=== PATIENT | male | born 1960 | race Hispanic/Latino ===

== ENCOUNTER 2017-04-01 15:11 | Observation (INO) | payer MEDICARE, OTHER ==
[2017-04-01 15:13] VITALS: BMI 24.3
[2017-04-01] MEDS ORDERED: Sodium Chloride 0.9% 1,000 ML IV STA (15:43)
--- NOTE | 2017-04-01 16:14 | ED PDOC ---
Arrival/HPI - General Chief Complaint: Abdominal Pain Time Seen by Provider: 04/01/17 15:26 Historian: Patient - History of Present Illness Narrative History of Present Illness (Text): 04/01/17 16:09 A 57 year old male, whose past medical history includes smoking, colon resection in 2010 and chronic constipation, presents to the emergency department complaining of generalized weakness and black stool for 1 week. Patient reports he has a bowel movement every 4 days after taking dulcolax. He states his last bowel movement was today prior to coming to the emergency room. Patient notes diffuse abdominal discomfort, and denies any relieving or exacerbating factors. Patient denies any fever, chills, nausea, vomiting, urinary symptoms, chest pain, shortness of breath or any other complaints. PMD: Dr. Mckinney Time/Duration: 1 week Symptom Course: Unchanged Quality: Other Context: Home Past Medical History - Provider Review Nursing Documentation Reviewed: Yes - Cardiac Hx Cardiac Disorders: Yes Hx Hypertension: Yes - Pulmonary Hx Respiratory Disorders: Yes Hx Chronic Obstructive Pulmonary Disease (COPD): Yes - Neurological Hx Neurological Disorder: No - HEENT Hx HEENT Disorder: No - Renal Hx Renal Disorder: No - Endocrine/Metabolic Hx Endocrine Disorders: No - Hematological/Oncological Hx Blood Disorders: No - Integumentary Hx Dermatological Disorder: No - Musculoskeletal/Rheumatological Hx Musculoskeletal Disorders: No - Gastrointestinal Hx Gastrointestinal Disorders: No - Genitourinary/Gynecological Hx Genitourinary Disorders: No - Psychiatric Hx Psychophysiologic Disorder: Yes Hx Anxiety: Yes Hx Depression: Yes Hx Substance Use: No - Surgical History Hx Appendectomy: Yes Other/Comment: colon resection - Suicidal Assessment Feels Threatened In Home Enviroment: No Family/Social History - Physician Review Nursing Documentation Reviewed: Yes Family/Social History: No Known Family HX Smoking Status: Heavy Smoker > 10 Cigarettes Daily Hx Alcohol Use: No Hx Substance Use: No Allergies/Home Meds Allergies/Adverse Reactions: Allergies No Known Allergies Allergy (Verified 04/01/17 15:16) Home Medications: Home Meds Medication Instructions Recorded Confirmed Alprazolam [Xanax] 0.5 mg PO QID PRN 04/01/17 04/01/17 Escitalopram Oxalate [Escitalopram 20 mg PO DAILY 04/01/17 04/01/17 Oxalate] Irbesartan [Irbesartan] 150 mg PO DAILY 04/01/17 04/01/17 Mometasone/Formoterol [Dulera 200 2 inh INH BID 04/01/17 04/01/17 Mcg/5 Mcg Inhaler] Physical Exam - Physical Exam Narrative Physical Exam (Text): - Review of Systems Constitutional: (+) Generalized weakness absent: Fatigue, Weight Change, Fevers Eyes: Normal ENT: Normal Respiratory: Normal absent: SOB, Cough, Sputum Cardiovascular: Normal absent: Chest pain, Palpitations, Syncope Gastrointestinal: (+) Black stool, Abdominal pain absent: Nausea, Vomiting Genitourinary: Normal. absent: Dysuria, Frequency, Hematuria Musculoskeletal: Normal. absent: Arthralgias, Back Pain, Neck Pain Skin: Normal Neurological: Normal absent: Focal Weakness Endocrine: Normal Hemo/Lymphatic: Normal Psychiatric: Normal - Physical exam Patient appears age appropriate, speaking full sentences without difficulty - Systems Exam Head: Present: Atraumatic, Normocephalic Pupils: Present: PERRL Extraocular Muscles: Present: EOMI Conjunctiva: Present: Normal Mouth: Present: Moist Mucous Membranes Neck: Present: Normal Range of Motion. No: MIDLINE TENDERNESS, Paraspinal Tenderness Respiratory/Chest: Present: Clear to Auscultation, Good Air Exchange. No: Respiratory Distress, Accessory Muscle Use, Tachypneic Cardiovascular: Present: Regular Rate and Rhythm, Normal S1, S2, Peripheral Pulses Present. No: Murmurs Abdomen: Present: Normal Bowel Sounds, No: Tenderness, Peritoneal Signs, Rebound, Guarding, Distention Rectal: Rectal exam performed by me and chaperoned by nurse Ruby, results showed guaiac negative. Back: Present: Normal Inspection. No: Midline Tenderness, Paraspinal Tenderness Upper Extremity: Present: Normal Inspection. No: Cyanosis, Edema Lower Extremity: Present: Normal Inspection. No: Edema Neurological: Present: GCS=15, Speech Normal, cranial nerves II through XII fully intact with no cerebellar abnormality, neuro-sensory fully intact. No focal neurological deficits. Skin: Present: Warm, Dry, Normal Color. No: Rashes Lymphatic: Present: OX3, NI, NC Psychiatric: Present: Alert, Oriented x 3, Normal Insight, Normal Concentration Vital Signs Reviewed: Yes Vital Signs Temp Pulse Resp BP Pulse Ox 04/01/17 16:50 76 18 148/86 99 04/01/17 15:17 98.4 F 81 18 151/94 H 99 Temperature: Afebrile Blood Pressure: Hypertensive Pulse: Regular Respiratory Rate: Normal Appearance: Positive for: Well-Appearing, Non-Toxic, Comfortable Pain Distress: None Mental Status: Positive for: Alert and Oriented X 3 Medical Decision Making ED Course and Treatment: 04/01/17 16:09 Impression: A 57 year old male with generalized weakness and black stool. Patient notes diffuse abdominal discomfort. Physical exam unremarkable. Rectal exam guaiac negative. Differential Diagnosis included but are not limited to: Constipation vs. Dehydration vs. cancer Plan: -- Abdomen and pelvis CT -- Chest xray -- EKG -- Labs -- Toradol and IV fluids -- Reassess and disposition Progress Notes: EKG shows NSR at [address]-segment elevations, normal intervals. Interpreted by me. 04/01/17 17:29 On reevaluation, patient states that his pain is still present, asking for Dilaudid for his symptoms. 04/01/17 19:[address] Olmos, agrees with med/obs for GI evaluation pt states his pain is better, aware of and agrees with plan 04/01/17 19:[address] Chaudhari, aware of admission - Lab Interpretations Lab Results: 04/01/17 16:16 04/01/17 16:16 Lab Results 04/01/17 16:16: Sodium 140, Chloride 105, Potassium 4.5, Carbon Dioxide 29, Anion Gap 11, BUN 14, Creatinine 0.8, Est GFR ( Amer) > 60, Est GFR (Non- Af Amer) > 60, Random Glucose 81, Calcium 8.9, Total Bilirubin 0.7, AST 26, ALT 39, Alkaline Phosphatase 65, Total Protein 6.9, Albumin 3.8, Globulin 3.1, Albumin/Globulin Ratio 1.2, Lipase 47 04/01/17 16:16: pO2 39, VBG pH 7.31 L, VBG pCO2 63.0 H, VBG HCO3 31.7 H, VBG Total CO2 33.6 H, VBG O2 Sat (Calc) 78.4 H, VBG Base Excess 3.6 H, VBG Potassium 4.6, Sodium 139.0, Chloride 110.0 H, Glucose 79, Lactate 0.7, FiO2 21.0, Venous Blood Potassium 4.6 04/01/17 16:16: PT 10.9, INR 1.01, APTT 31.4 H 04/01/17 16:16: WBC 5.9, RBC 3.85, Hgb 12.0 L, Hct 34.8 L, MCV 90.4, MCH 31.2, MCHC 34.5, RDW 13.2, Plt Count 256, MPV 9.2, Gran % 54.2, Lymph % (Auto) 32.5, [place] % (Auto) 9.1 H, Eos % (Auto) 3.2, Baso % (Auto) 1.0, Gran # 3.17, Lymph # 1.9, [place] # 0.5, Eos # 0.2, Baso # 0.06 I have reviewed the lab results: Yes - RAD Interpretation Radiology Orders: 04/01/17 15:44 ABD & PELVIS IV CONTRAST ONLY [CT] Stat CHEST PORTABLE [RAD] Stat - Medication Orders Current Medication Orders: Discontinued Medications Hydromorphone HCl (Dilaudid) 1 mg IVP STAT STA Stop: 04/01/17 17:33 Last Admin: 04/01/17 18:15 Dose: 1 mg Sodium Chloride (Sodium Chloride 0.9%) 1,000 mls @ 1,000 mls/hr IV .Q1H STA Stop: 04/01/17 16:42 Last Admin: 04/01/17 16:49 Dose: 1,000 mls/hr Iohexol (Omnipaque 300 100 Ml) Confirm Administered Dose 100 ml IJ .STK-MED ONE Stop: 04/01/17 17:12 Ketorolac Tromethamine (Toradol) 15 mg IVP STAT STA Stop: 04/01/17 15:44 Last Admin: 04/01/17 16:49 Dose: 15 mg Re-Assess: [facility] Pain Assessment Document 04/01/17 17:49 HI (Rec: 04/01/17 18:15 HI [id number]) Pain Reassessment Is this a pain reassessment? Yes Sleep Is patient sleeping during reassessment? No Presence of Pain Presence of Pain Yes Pain Scale Used Pain Scale Used Numeric Location Pain Location Body Site Abdomen Description Description Constant Intensity of Pain at present 8 - Scribe Statement The provider has reviewed the documentation as recorded by the Zenaida Carr Provider Scribe Attestation: All medical record entries made by the Scribe were at my direction and personally dictated by me. I have reviewed the chart and agree that the record accurately reflects my personal performance of the history, physical exam, medical decision making, and the department course for this patient. I have also personally directed, reviewed, and agree with the discharge instructions and disposition. Disposition/Present on Arrival - Present on Arrival Any Indicators Present on Arrival: No History of DVT/PE: No History of Uncontrolled Diabetes: No Urinary Catheter: No History of Decub. Ulcer: No History Surgical Site Infection Following: None - Disposition Have Diagnosis and Disposition been Completed?: Yes Diagnosis: Abdominal pain Disposition: HOSPITALIZED Disposition Time: 19:14 Patient Plan: Admission Condition: FAIR Referrals: Mike Mckinney MD [Primary Care Provider] - Follow up with primary
[2017-04-01 16:52] LABS: ADD MANUAL DIFF? NO
[2017-04-01 17:03] LABS: VENOUS BLOOD GAS BASE EXCESS 3.6 mmol/L (0.0-2.0); VENOUS BLOOD PH 7.31 (7.32-7.43)
[2017-04-01 17:04] LABS: ALB/GLOB RATIO 1.2 (1.1-1.8); ALKALINE PHOSPHATASE 65 U/L (38-133); ALT/SGPT 39 U/L (7-56); AST/SGOT 26 U/L (15-59); BILIRUBIN,TOTAL 0.7 mg/dL (0.2-1.3); BLOOD UREA NITROGEN 14 mg/dL (7-21); CALCIUM 8.9 mg/dL (8.4-10.5); CARBON DIOXIDE 29 mmol/L (21-33); CHLORIDE 105 mmol/L (98-107); GFR AFRICAN-AMERICAN > 60; GLUCOSE,RANDOM 81 mg/dL (70-110); LIPASE 47 U/L (23-300); POTASSIUM 4.5 mmol/L (3.6-5.0); SODIUM 140 mmol/L (132-148); TOTAL PROTEIN 6.9 g/dL (5.8-8.3)
[2017-04-01 17:11] LABS: BASO # 0.06 K/mm3 (0.0-2.0); EOS # 0.2 (0.0-0.7); EOS % 3.2 % (1.5-5.0); GRAN # 3.17 (1.4-6.5); GRAN % 54.2 % (50.0-68.0); HEMATOCRIT 34.8 % (42.0-52.0); LYMPH # 1.9 (1.2-3.4); LYMPH % 32.5 % (22.0-35.0); MEAN CELL VOLUME 90.4 fL (80.0-105.0); MEAN CORPUSCULAR HEMOGLOBIN 31.2 pg (25.0-35.0); MEAN CORPUSCULAR HGB CONC 34.5 g/dl (31.0-37.0); MEAN PLATELET VOLUME 9.2 fl (7.0-11.0); MONO # 0.5 (0.1-0.6); MONO % 9.1 % (1.0-6.0); PLATELET COUNT 256 10^3/uL (120.0-450.0); RED CELL DISTRIBUTION WIDTH 13.2 % (11.5-14.5); WHITE BLOOD COUNT 5.9 10^3/ul (4.5-11.0)
[2017-04-01] MEDS ORDERED: Iohexol 300 100 ML IJ ONE (17:11)
[2017-04-01 17:18] LABS: INR 1.01 (0.93-1.08); PARTIAL THROMBOPLASTIN TIME 31.4 Seconds (23.7-30.8)
[2017-04-01] MEDS ORDERED: HYDROmorphone 2 mg/ml ISec IVP STA (17:30)
[2017-04-01] MEDS ORDERED: HYDROmorphone 1 mg/ml ISec IVP STA (17:32)
--- NOTE | 2017-04-01 17:50 | CT ---
PROCEDURE: CT Abdomen and Pelvis with contrast HISTORY: abd pain COMPARISON: None available. TECHNIQUE: Contrast dose: 100 mL Omnipaque 350 Radiation dose: Total exam DLP = 605.22 mGy-cm. This CT exam was performed using one or more of the following dose reduction techniques: Automated exposure control, adjustment of the mA and/or kV according to patient size, and/or use of iterative reconstruction technique. FINDINGS: LOWER THORAX: No visible consolidation, pleural effusion, or pneumothorax. LIVER: Hypoattenuation of the liver compatible with hepatic steatosis. GALLBLADDER AND BILE DUCTS: Unremarkable. PANCREAS: Dilated ectatic pancreatic duct measuring up to 7 mm. 4 mm too small to characterize hypodense lesion within the uncinate process, possibly cyst. SPLEEN: Unremarkable. ADRENALS: Unremarkable. KIDNEYS AND URETERS: The kidneys enhance symmetrically. No hydronephrosis or obstructing calculus identified. VASCULATURE: Atherosclerotic calcifications. No aortic aneurysm. BOWEL: The stomach is nondistended. Lack of oral contrast limits evaluation for bowel pathology. No dilated loops of bowel to suggest obstruction. Markedly thick-walled loops of small bowel (jejunum) ; correlate for infectious or inflammatory etiologies. APPENDIX: The appendix is not identified. No secondary signs of acute appendicitis. PERITONEUM: No significant free fluid. No definite free air. LYMPH NODES: No bulky adenopathy. BLADDER: Thick-walled under distended urinary bladder. REPRODUCTIVE: Unremarkable. BONES: Osseous demineralization. Degenerative changes. Bilateral L5 spondylolysis. 2.2 cm of lytic lesion within the right femur with sclerotic borders. OTHER FINDINGS: Surgical clips within the right abdomen. IMPRESSION: Markedly thick-walled loops of small bowel; correlate for infectious or inflammatory etiologies. Dilated ectatic pancreatic duct measuring up to 7 mm. 4 mm too small to characterize hypodense lesion within the uncinate process, possibly cyst. Outpatient MRCP/MR pancreas may be considered for further evaluation if indicated. Additional findings as above.
[2017-04-01] MEDS ORDERED: Sodium Chloride 0.9% 1,000 ML IV SCH (19:30)
--- NOTE | 2017-04-01 20:32 | CP.PCM.HP ---
<Latricia Chaudhari - Last Filed: 04/02/17 07:26> History of Present Illness - History of Present Illness History of Present Illness: Internal medicine H & P for Dr. Tata Chaudhari, PGY-1 Pt S & E at bedside. 57M w/PMH sig for chronic constipation and diarrhea admitted for abdominal pain x 2 wks. Pt reports sudden onset of abdominal pain, no inciting factors. Pain is left sided w/radiation diffusely to abdomen, worsening over last 2 weeks from mild to severe, sharp. Pt states that he has chronic constipation, requiring 3 doses of Dulcolax to move bowels, moves bowels Q4D- BM is dark/ black and hard, not sticky, "like bricks", followed by dark liquid stools. Pt was seen on day of admission by PMD with instructions to present to ED for admission. Last BM on day of admission. pain alleviated by pain medications, aggravated by lack of BM. Pt took Tylenol at home without relief. Admits to weakness upon sitting/standing from a lying position, has fallen back on couch when attempting to get up numerous times, flatus, lethargy, fatigue, regurgitation, night sweats, palpitations, KHAN, wheezing, cough in AM (non productive), decreased appetite, panic attacks. Denies nausea, emesis, fevers, recent illness, sore throat, rhinorrhea, changes in hearing, neck pain, chest pain, SOB, melena. PMH: Chronic constipation & diarrhea since 2010, HTN, panic attacks PSH: appendectomy and colon resection (2010) All: NKA SH: Admits to tobacco use- 1 ppd x 35 yrs, occasional ETOH use (1 drink q 2 mos) , denies illicit drug use PMD: Hank Home meds: Xanax, Escitalopram, Irbesartan, Dulera Present on Admission - Present on Admission Any Indicators Present on Admission: No History of DVT/PE: No History of Uncontrolled Diabetes: No Urinary Catheter: No Decubitus Ulcer Present: No Review of Systems - Review of Systems All systems: reviewed and no additional remarkable complaints except - Constitutional Constitutional: Chills, Fatigue, Lethargy, Night Sweats, Weakness. absent: Fever, Headache, Increased Appetite - EENT Eyes: absent: Blurred Vision, Change in Vision, Diplopia, Spots in Vision Ears: absent: Dizziness Nose/Mouth/Throat: absent: Nasal Congestion, Dysphagia, Sore Throat - Cardiovascular Cardiovascular: Leg Edema (occasional). absent: Chest Pain, Chest Pain with Activity, Diaphoresis, Palpitations - Respiratory Respiratory: Cough, Dyspnea on Exertion, Wheezing - Gastrointestinal Gastrointestinal: Abdominal Pain, Constipation, Diarrhea. absent: Fecal Incontinence, Hematemesis, Hematochezia, Melena, Nausea, Vomiting - Genitourinary Genitourinary: absent: Difficulty Urinating, Dysuria, Hematuria - Musculoskeletal Musculoskeletal: absent: Neck Pain, Numbness, Tingling - Integumentary Integumentary: absent: Rash - Neurological Neurological: absent: Numbness, Tingling, Weakness - Psychiatric Psychiatric: Anxiety - Endocrine Endocrine: Fatigue. absent: Palpitations Past Patient History - Past Social History Smoking Status: Heavy Smoker > 10 Cigarettes Daily - CARDIAC Hx Cardiac Disorders: Yes Hx Hypertension: Yes - PULMONARY Hx Respiratory Disorders: Yes Hx Chronic Obstructive Pulmonary Disease (COPD): Yes - NEUROLOGICAL Hx Neurological Disorder: No - HEENT Hx HEENT Problems: No - RENAL Hx Chronic Kidney Disease: No - ENDOCRINE/METABOLIC Hx Endocrine Disorders: No - HEMATOLOGICAL/ONCOLOGICAL Hx Blood Disorders: No - INTEGUMENTARY Hx Dermatological Problems: No - MUSCULOSKELETAL/RHEUMATOLOGICAL Hx Musculoskeletal Disorders: No - GASTROINTESTINAL Hx Gastrointestinal Disorders: No - GENITOURINARY/GYNECOLOGICAL Hx Genitourinary Disorders: No - PSYCHIATRIC Hx Psychophysiologic Disorder: Yes Hx Anxiety: Yes Hx Depression: Yes Hx Substance Use: No - SURGICAL HISTORY Hx Appendectomy: Yes Other/Comment: colon resection Meds Home Medications: Home Medication List Medication Instructions Recorded Confirmed Type Mesalamine [Delzicol] 400 mg PO BID #30 cap.drtab. 04/04/17 Rx Pantoprazole [Protonix EC Tab] 40 mg PO DAILY #30 ect 04/04/17 Rx Allergies/Adverse Reactions: Allergies Allergy/AdvReac Type Severity Reaction Status Date / Time No Known Allergies Allergy Verified 04/01/17 15:16 Physical Exam - Constitutional Appears: Well, Non-toxic, No Acute Distress - Head Exam Head Exam: ATRAUMATIC, NORMAL INSPECTION, NORMOCEPHALIC - Eye Exam Eye Exam: EOMI, Normal appearance, PERRL Pupil Exam: NORMAL ACCOMODATION, PERRL - ENT Exam ENT Exam: Mucous Membranes Moist, Normal Exam - Neck Exam Neck exam: Positive for: Full Rom, Normal Inspection. Negative for: Tenderness - Respiratory Exam Respiratory Exam: Wheezes (over left lung cottrell), NORMAL BREATHING PATTERN. absent: Accessory Muscle Use, Chest Wall Tenderness, Clear to Auscultation Bilateral, Rales, Rhonchi, Respiratory Distress - Cardiovascular Exam Cardiovascular Exam: REGULAR RHYTHM, +S1, +S2 - GI/Abdominal Exam GI & Abdominal Exam: Firm, Guarding, Hyperactive Bowel Sounds, Tenderness ( diffuse). absent: Distended, Rebound, Soft - Rectal Exam Rectal Exam: Deferred - Extremities Exam Extremities exam: Positive for: full ROM, normal inspection. Negative for: pedal edema, tenderness - Back Exam Back exam: FULL ROM, NORMAL INSPECTION. absent: paraspinal tenderness, tenderness - Neurological Exam Neurological exam: Alert, CN II-XII Intact, Oriented x3 - Psychiatric Exam Psychiatric exam: Normal Affect, Normal Mood - Skin Skin Exam: Dry, Intact, Normal Color, Warm Additional comments: well healed paramedian abdominal scar Results - Vital Signs Recent Vital Signs: Last Vital Signs Temp 98.3 F 04/01/17 19:23 Pulse 56 L 04/01/17 19:23 Resp 20 04/01/17 19:23 BP 163/99 H 04/01/17 19:23 Pulse Ox 98 04/01/17 19:23 - Labs Result Diagrams: 04/01/17 16:16 04/01/17 16:16 Labs: Laboratory Results - last 24 hr 04/01/17 04/01/17 04/01/17 16:16 16:16 16:16 WBC 5.9 RBC 3.85 Hgb 12.0 L Hct 34.8 L MCV 90.4 MCH 31.2 MCHC 34.5 RDW 13.2 Plt Count 256 MPV 9.2 Gran % 54.2 Lymph % (Auto) 32.5 [place] % (Auto) 9.1 H Eos % (Auto) 3.2 Baso % (Auto) 1.0 Gran # 3.17 Lymph # 1.9 [place] # 0.5 Eos # 0.2 Baso # 0.06 PT 10.9 INR 1.01 APTT 31.4 H pO2 39 VBG pH 7.31 L VBG pCO2 63.0 H VBG HCO3 31.7 H VBG Total CO2 33.6 H VBG O2 Sat (Calc) 78.4 H VBG Base Excess 3.6 H VBG Potassium 4.6 Sodium 139.0 Chloride 110.0 H Glucose 79 Lactate 0.7 FiO2 21.0 Potassium Carbon Dioxide Anion Gap BUN Creatinine Est GFR ( Amer) Est GFR (Non-Af Amer) Random Glucose Calcium Total Bilirubin AST ALT Alkaline Phosphatase Total Protein Albumin Globulin Albumin/Globulin Ratio Lipase Venous Blood Potassium 4.6 04/01/17 16:16 WBC RBC Hgb Hct MCV MCH MCHC RDW Plt Count MPV Gran % Lymph % (Auto) [place] % (Auto) Eos % (Auto) Baso % (Auto) Gran # Lymph # [place] # Eos # Baso # PT INR APTT pO2 VBG pH VBG pCO2 VBG HCO3 VBG Total CO2 VBG O2 Sat (Calc) VBG Base Excess VBG Potassium Sodium 140 Chloride 105 Glucose Lactate FiO2 Potassium 4.5 Carbon Dioxide 29 Anion Gap 11 BUN 14 Creatinine 0.8 Est GFR ( Amer) > 60 Est GFR (Non-Af Amer) > 60 Random Glucose 81 Calcium 8.9 Total Bilirubin 0.7 AST 26 ALT 39 Alkaline Phosphatase 65 Total Protein 6.9 Albumin 3.8 Globulin 3.1 Albumin/Globulin Ratio 1.2 Lipase 47 Venous Blood Potassium Assessment & Plan - Assessment and Plan (Free Text) Assessment: 57M w/PMH sig for chronic constipation and diarrhea admitted for abdominal pain x 2 wks. Plan: Abdominal pain likely due to chronic constipation requiring high doses of laxatives No leukocytosis Afebrile FOB neg Hgt 12 Lipase 47 NS@100 NPO FU FOB Zofran 4mg IVP Q6H PRN nausea Pain regimen: Tylenol 650 mg Q6H PRN mild pain Toradol 30mg Q6H PRN mod pain Bowel regimen: Senokot 1 tab daily, 1 tab stat Miralax 17gm daily, 17gm stat Mag Citrate 300ml PO x 1 CT ab w/Markedly thick-walled loops of small bowel; correlate for infectious or inflammatory etiologies.Dilated ectatic pancreatic duct measuring up to 7 mm. 4 mm too small to characterize hypodense lesion within the uncinate process, possibly cyst. Outpatient MRCP/MR pancreas may be considered for further evaluation if indicated. Will consider poss GI consult if indicated Tobacco abuse Nicotine patch daily Anxiety Home med: Xanax Monitor GI/DVT ppx Lovenox SCDs Protonix Dispo Admit to med surg VS Q6H Activity as jade OOBTC NPO Orthostatics QD DW attending - Date & Time Date: 04/01/17 Time: 20:29 Decision To Admit - Pt Status Changed To: Hospital Disposition Of: Observation - . Bed Request Type: Med/Surg Admitting Physician: Clinton Olmos <Clinton Olmos - Last Filed: 04/05/17 09:01> Results - Vital Signs Recent Vital Signs: Last Vital Signs Temp 98.1 F 04/04/17 10:23 Pulse 52 L 04/04/17 10:23 Resp 16 04/04/17 10:23 BP 147/90 04/04/17 10:55 Pulse Ox 99 04/04/17 10:23 - Labs Result Diagrams: 04/04/17 05:00 04/04/17 05:00 Labs: Laboratory Results - last 24 hr 04/04/17 10:00 Hepatitis A IgM Ab Negative Hep Bs Antigen Negative Hep B Core IgM Ab Negative Hepatitis C Antibody Negative Attending/Attestation - Attestation I have personally seen and examined this patient.: Yes I have fully participated in the care of the patient.: Yes I have reviewed all pertinent clinical information: Yes Notes (Text): 04/05/17 09:00 Medical record note made by the resident after discussion with my direction and input after the patient was personally seen and examined by me. I have reviewed the chart and agree that the record accurately reflects by personal performance of the history, physical exam, data review, and medical decision-making, in the course for the patient. I have also personally directed the plan of care.
[2017-04-01] MEDS ORDERED: Docusate-Senna 50 mg-8.6 mg Tab PO ONE (22:06)
[2017-04-01] MEDS ORDERED: POLYETHYLENE GLYCOL 3350 17 GM/Dose PACKET PO STA (22:06)
[2017-04-01] MEDS ORDERED: Magnesium Citrate Oral SOL (300 ml) PO ONE (22:07)
[2017-04-02 07:35] LABS: ADD MANUAL DIFF? NO
[2017-04-02 07:39] LABS: BASO # 0.06 K/mm3 (0.0-2.0); BASO % 1.2 % (0.0-3.0); EOS # 0.3 (0.0-0.7); EOS % 4.8 % (1.5-5.0); GRAN # 2.18 (1.4-6.5); HEMATOCRIT 33.3 % (42.0-52.0); LYMPH # 2.2 (1.2-3.4); LYMPH % 42.9 % (22.0-35.0); MEAN CORPUSCULAR HEMOGLOBIN 29.9 pg (25.0-35.0); MEAN CORPUSCULAR HGB CONC 33.6 g/dl (31.0-37.0); MEAN PLATELET VOLUME 9.3 fl (7.0-11.0); MONO # 0.5 (0.1-0.6); MONO % 9.1 % (1.0-6.0); PLATELET COUNT 255 10^3/uL (120.0-450.0); RED CELL DISTRIBUTION WIDTH 13.1 % (11.5-14.5); WHITE BLOOD COUNT 5.2 10^3/ul (4.5-11.0)
[2017-04-02 07:55] LABS: ALB/GLOB RATIO 1.3 (1.1-1.8); ALKALINE PHOSPHATASE 65 U/L (38-133); ALT/SGPT 38 U/L (7-56); AST/SGOT 30 U/L (15-59); BILIRUBIN,TOTAL 0.7 mg/dL (0.2-1.3); BLOOD UREA NITROGEN 17 mg/dL (7-21); CALCIUM 8.6 mg/dL (8.4-10.5); CARBON DIOXIDE 30 mmol/L (21-33); CHLORIDE 103 mmol/L (95-110); GFR AFRICAN-AMERICAN > 60; GLUCOSE,RANDOM 73 mg/dL (70-110); SODIUM 138 mmol/L (132-148); TOTAL PROTEIN 6.3 g/dL (5.8-8.3)
--- NOTE | 2017-04-02 08:42 | RAD ---
HISTORY: cough COMPARISON: No prior. FINDINGS: LUNGS: No active pulmonary disease. PLEURA: No significant pleural effusion identified, no pneumothorax apparent. CARDIOVASCULAR: Normal. OSSEOUS STRUCTURES: No significant abnormalities. VISUALIZED UPPER ABDOMEN: Normal. OTHER FINDINGS: None. IMPRESSION: No active disease.
[2017-04-02] MEDS: Docusate-Senna 50 mg-8.6 mg Tab PO SCH (09:19)
[2017-04-02] MEDS: Pantoprazole 40 mg EC Tab PO SCH (09:19)
[2017-04-02] MEDS: POLYETHYLENE GLYCOL 3350 17 GM/Dose PACKET PO SCH (09:20)
[2017-04-02] MEDS: Enoxaparin 40 mg Syringe SC SCH (09:20)
--- NOTE | 2017-04-02 09:38 | CP.PCM.PN ---
<Bereket Kelly - Last Filed: 04/02/17 16:20> Subjective - Date & Time of Evaluation Date of Evaluation: 04/02/17 Time of Evaluation: 09:34 - Subjective Subjective: Medicine progress note - Bereket Kelly PGY 1 Patient seen and examined at bedside this morning. No acute overnight events or new complaints. Patient presented for symptoms of diffuse abdominal pain that have been ongoing now for several months. He reports a history of longstanding constipation for which he uses laxatives on a regular basis for. Pending GI workup. Denies chest pain, palpitations, SOB. Objective - Vital Signs/Intake and Output Vital Signs (last 24 hours): Temp Pulse Resp BP Pulse Ox 98.3 F 46 L 18 136/86 97 04/01/17 19:23 04/01/17 22:44 04/01/17 23:46 04/02/17 09:20 04/01/17 22:44 Intake and Output: 04/02/17 04/02/17 06:59 18:59 Intake Total 0 Balance 0 - Medications Medications: Current Medications Acetaminophen (Tylenol 325mg Tab) 650 mg PO Q6H PRN PRN Reason: Pain, Mild (1-3) Alprazolam (Xanax) 0.5 mg PO QID PRN; Protocol PRN Reason: Anxiety Last Admin: 04/02/17 00:14 Dose: 0.5 mg Enoxaparin Sodium (Lovenox) 40 mg SC DAILY [facility] PRN Reason: Protocol Last Admin: 04/02/17 09:20 Dose: 40 mg Sodium Chloride (Sodium Chloride 0.9%) 1,000 mls @ 100 mls/hr IV .Q10H [facility] Last Admin: 04/02/17 00:15 Dose: Not Given Ketorolac Tromethamine (Toradol) 30 mg IVP Q6H PRN PRN Reason: Pain, moderate (4-7) Last Admin: 04/02/17 09:23 Dose: 30 mg Losartan Potassium (Cozaar) 50 mg PO DAILY [facility] Last Admin: 04/02/17 09:20 Dose: 50 mg Nicotine (Nicoderm Cq) 1 patch TD DAILY [facility] Last Admin: 04/02/17 09:21 Dose: 1 patch Ondansetron HCl (Zofran Inj) 4 mg IVP Q6 PRN PRN Reason: Nausea/Vomiting Pantoprazole Sodium (Protonix Ec Tab) 40 mg PO DAILY [facility] Last Admin: 04/02/17 09:19 Dose: 40 mg Polyethylene Glycol (Miralax) 17 gm PO DAILY [facility] Last Admin: 04/02/17 09:20 Dose: 17 gm Senna/Docusate Sodium (Senokot S 50 Mg-8.6 Mg) 1 tab PO DAILY [facility] Last Admin: 04/02/17 09:19 Dose: 1 tab - Labs Labs: 04/02/17 07:00 04/02/17 07:00 PT 10.9 Seconds (9.9-11.8) 04/01/17 16:16 INR 1.01 (0.93-1.08) 04/01/17 16:16 APTT 31.4 Seconds (23.7-30.8) H 04/01/17 16:16 - Constitutional Appears: Well, Non-toxic, No Acute Distress - Head Exam Head Exam: ATRAUMATIC, NORMAL INSPECTION, NORMOCEPHALIC - Eye Exam Eye Exam: EOMI, PERRL - ENT Exam ENT Exam: Mucous Membranes Moist - Neck Exam Neck Exam: Normal Inspection. absent: Lymphadenopathy, Tenderness, Thyromegaly - Respiratory Exam Respiratory Exam: Clear to Ausculation Bilateral. absent: Rales, Rhonchi, Wheezes - Cardiovascular Exam Cardiovascular Exam: RRR, +S1, +S2. absent: Gallop, JVD, Rubs - GI/Abdominal Exam GI & Abdominal Exam: Soft, Tenderness. absent: Distended, Firm, Guarding, Rigid , Rebound - Extremities Exam Extremities Exam: Normal Inspection - Neurological Exam Neurological Exam: Alert, Awake, CN II-XII Intact, Oriented x3 - Psychiatric Exam Psychiatric exam: Normal Affect, Normal Mood - Skin Skin Exam: Dry, Intact, Normal Color, Warm Assessment and Plan - Assessment and Plan (Free Text) Plan: 57yo male with history of chronic constipation presents c/o diffuse abdominal pain that has been ongoing now for several months 1. Abdominal pain likely secondary to chronic constipation -Longstanding history of constipation requiring daily use of laxatives -Afebrile, no leukocytosis -FOBT negative in the ED, repeat pending -Lipase within normal limits -CT abd/pelvis reviewed; revealed markedly thick-walled loops of small bowel; Dilated ectatic pancreatic duct measuring up to 7mm. 4mm too small to characterize hypodense lesion within the uncinate process; see full report -Anemia workup pending -NS@80 -NPO -Orthostatic vital signs -Continue miralax/sennokot -GI consulted - Dr. oGdoy 2. Presyncope -Patient reports recent episodes of dizziness and lightheadedness -Bradycardic in the 40's on admission -Orthostatic vital signs pending -Echocadiogram pending -Carotid doppler pending -MRI brain pending -Cardio consulted - Dr. Aleman -Neurology consulted - Dr. Haney 3. Hypertension -Continue losartan 4. Anxiety -Continue xanax 5. GI/DVT ppx Protonix/Lovenox Patient seen, case discussed and reviewed with attending, Dr. Mckinney <Mike Mckinney - Last Filed: 05/03/17 08:32> Objective - Vital Signs/Intake and Output Vital Signs (last 24 hours): Temp Pulse Resp BP Pulse Ox 98.1 F 52 L 16 147/90 99 04/04/17 10:23 04/04/17 10:23 04/04/17 10:23 04/04/17 10:55 04/04/17 10:23 - Labs Labs: 04/04/17 05:00 04/04/17 05:00 PT 10.9 Seconds (9.9-11.8) 04/01/17 16:16 INR 1.01 (0.93-1.08) 04/01/17 16:16 APTT 31.4 Seconds (23.7-30.8) H 04/01/17 16:16 Attending/Attestation - Attestation I have personally seen and examined this patient.: Yes I have fully participated in the care of the patient.: Yes I have reviewed all pertinent clinical information, including history, physical exam and plan: Yes Notes (Text): 05/03/17 08:32 Medical record note made by the resident after discussion with my direction and input after the patient was personally seen and examined by me. I have reviewed the chart and agree that the record reflects my personal performance of history, physical, data review and course for the patient that I have planned.
[2017-04-02 10:51] LABS: RETIC% 0.74 % (0.5-1.5)
[2017-04-02 11:10] LABS: IRON 82 ug/dL (45-180)
--- NOTE | 2017-04-02 11:56 | CON ---
DATE: 04/02/2017 HISTORY OF PRESENT ILLNESS: The patient is a 57-year-old male who presents with abdominal discomfort which is nonspecific. PAST MEDICAL HISTORY: Includes a history of hypertension treated with antihypertensive medications. The patient has no previous cardiac history. He does smoke excessively. No previous myocardial infarction. No chest pain, no shortness of breath. The patient has no dizzy episodes nor has he had any syncopal episodes. SOCIAL HISTORY: He is an active smoker. REVIEW OF SYSTEMS: A 14-point review of systems was reviewed in detail. No cardiac symptomatology n oted. PHYSICAL EXAMINATION: VITAL SIGNS: Blood pressure is 160 systolic with a heart rate in the 40s. NECK: Negative JVD. LUNGS: Without rales. HEART: Reveals S1, S2. EXTREMITIES: Without edema. LABORATORIES: Noted. EKG shows sinus bradycardia which is within normal limits. IMPRESSION: 1. Sinus bradycardia, likely with a vagal input from his abdominal pain. 2. Chronic obstructive pulmonary disease. 3. History of hypertension. 4. Nonspecific abdominal pain. Given these findings, we will obtain an echocardiogram as well as thyroid function tests. The patien t is not hemodynamically compromised. I have discussed with the patient about the need to stop smoki ng. After his abdominal pain is resolved, we will consider a stress test to evaluate coronary diseas e given his cardiac risk factors. Freddie Aleman MD cc: [id number] TT: 04/02/2017 11:55:42 Confirmation # [id number] Dictation # [id number] tn
[2017-04-02] MEDS: Sodium Chloride 0.9% 1,000 ML IV SCH (12:00)
--- NOTE | 2017-04-02 12:35 | CON ---
DATE: 04/02/2017 HISTORY OF PRESENT ILLNESS: This is a 57-year-old male with a past medical history of status post co karson resection in 2010 and constipation, came here because the patient had a presyncopal episode, felt like passing out, did not lose consciousness, so brought to the Emergency Room. The patient complai mine of diffuse abdominal discomfort and workup in progress. PAST MEDICAL HISTORY: Hypertension, COPD. ALLERGIES: No known drug allergies. HOME MEDICATIONS: Xanax, Xarelto. PHYSICAL EXAMINATION: VITAL SIGNS: Blood pressure 151/94. HEENT: Normocephalic, atraumatic. NECK: Supple. NEUROLOGIC: Cranial nerves II through XII were tested. Pupils reactive. EOMs intact. Visual field s full. No facial asymmetry. Tongue midline. Motor examination: Spontaneous movement of the extre mities noted. Deep tendon reflexes 1+. Both plantars are downgoing. Sensory appears intact. Cereb ellar gait deferred. IMPRESSION AND PLAN: Presyncope, less likely seizure. We will do CAT scan of the head. Further tsering gement after the results of above. Jacques Haney MD cc: [id number] TT: 04/02/2017 12:34:50 Confirmation # [id number] Dictation # [id number] gordy
--- NOTE | 2017-04-02 13:55 | CON ---
DATE: 04/02/2017 Seen and examined at the bedside earlier today. REQUEST FOR CONSULT: For abdominal pain. HISTORY OF PRESENT ILLNESS: This is a 57-year-old male with a past medical history of hypertension, chronic constipation and diarrhea who comes with complaints of abdominal pain for 2 weeks. The patient has history of appendectomy and colon resection back in 2010. He complains of having constipation for months now. He can go about 5-6 days without a bowel movement. Recently the constipation was severe. He took Dulcolax to help move his bowels. He did report noticing dark black and hard stools, followed by dark liquid BMs. No bright red blood. The patient complained of feeling lethargic. He denied any nausea or vomiting, no fever or chills, no shortness of breath or chest pains. He did complain of palpitations. The patient denies ever having endoscopy or colonoscopy. Denies any weight loss or loss of appetite. Only if he is constipated he has decreased appetite. He was hospitalized in [facility] a few years ago and reports that he was told he had ulcerative colitis. PAST MEDICAL HISTORY: As stated above, chronic constipation/diarrhea, panic attacks, hypertension and COPD. PAST SURGICAL HISTORY: He had a perforated appendix and required a colon resection, and also had bilateral hernia repair. FAMILY HISTORY: Denies any known history. SOCIAL HISTORY: The patient is a current day smoker. He smokes about 1 pack a day for over 30 years. He does drink occasional alcohol. Denies any substance abuse. ALLERGIES: No known drug allergies. MEDICATIONS: Reviewed as per MAR. REVIEW OF SYSTEMS: Systems reviewed with positive findings, see HPI. VITAL SIGNS: Temperature is 98.4, blood pressure 136/86, pulse 50, respirations 20, 96% on room air. LABORATORY DATA: WBC is 5.2, H and H is 11.2 and 33.3, platelets are 255. PT is 10.9, INR is 1.01, PTT 31.4. His chem: Sodium 138, K 4.0, BUN is 17, creatinine is 0.8. LFTs within normal limits. CT scan of abdomen and pelvis with IV contrast shows fatty liver, dilated ectatic pancreatic duct measuring up to 7 mm, 4 mm too small to characterize hypodense lesion within the uncinate process, possibility of cyst. The bowel shows ____ markedly thick walled ____ of small bowel, the jejunum; correlate for infectious or inflammatory etiologies. There are surgical clips in the right abdomen. He also had a chest x-ray and that was negative for pulmonary disease. No pleural effusion or pneumothorax. PHYSICAL EXAMINATION: HEENT: Sclerae are anicteric. NECK: Supple. CARDIAC: S1, S2. LUNGS: Clear. ABDOMEN: With bowel sounds, soft, is not distended. He does have tenderness to midabdomen. No rebound, guarding, or organomegaly. ASSESSMENT: This is a 57-year-old male with history of hypertension, chronic constipation and comes with complaints of diffuse abdominal pain. He did have a CT scan revealing ____ thick walled ____ of the small bowel/jejunum as well as a dilated ectatic pancreatic duct measuring up to 7 mm. History of perforated appendix requiring a colon resection, ? history of ulcerative colitis - the patient states he is not taking any medication, history of panic attacks. The patient is also noted to have anemia. PLAN: Review CT scan. The patient may benefit from a colonoscopy in view of history of chronic constipation/diarrhea. Will also order MRCP without contrast further evaluate the pancreatic duct. Currently patient is getting MiraLax daily. He is also on senna. Continue GI prophylaxis. He is also on DVT prophylaxis. Is pending cardiology and neurology evaluation. Thank you for this consultation and for allowing us to participate in your patient's care. Will make further recommendations based upon patient's clinical course. The patient was seen and case discussed with Dr. Godoy. Anna TURNER cc: [id number] TT: 04/02/2017 12:36:31 Confirmation # [id number] Dictation # [id number] alina HORAN
[2017-04-02 17:16] LABS: FOLATE > 20.0 ng/mL
--- NOTE | 2017-04-02 23:00 | CARD ---
APPROVED REPORT EKG Measurement Heart [id number] [id number] [id number] <Conclusion> Normal sinus rhythm Left axis deviation Incomplete right bundle branch block Abnormal ECG
[2017-04-03] MEDS: Sodium Chloride 0.9% 1,000 ML IV SCH ×3 (04:39→19:24)
[2017-04-03 07:04] LABS: ADD MANUAL DIFF? NO
[2017-04-03 07:13] LABS: BASO # 0.03 K/mm3 (0.0-2.0); BASO % 0.4 % (0.0-3.0); EOS # 0.1 (0.0-0.7); EOS % 1.9 % (1.5-5.0); GRAN # 4.53 (1.4-6.5); GRAN % 67.5 % (50.0-68.0); HEMATOCRIT 35.3 % (42.0-52.0); LYMPH # 1.6 (1.2-3.4); LYMPH % 23.5 % (22.0-35.0); MEAN CELL VOLUME 87.4 fL (80.0-105.0); MEAN CORPUSCULAR HEMOGLOBIN 30.4 pg (25.0-35.0); MEAN CORPUSCULAR HGB CONC 34.8 g/dl (31.0-37.0); MEAN PLATELET VOLUME 9.2 fl (7.0-11.0); MONO # 0.5 (0.1-0.6); MONO % 6.7 % (1.0-6.0); PLATELET COUNT 274 10^3/uL (120.0-450.0); RED CELL DISTRIBUTION WIDTH 12.7 % (11.5-14.5); WHITE BLOOD COUNT 6.7 10^3/ul (4.5-11.0)
[2017-04-03 07:25] LABS: ALB/GLOB RATIO 1.2 (1.1-1.8); ALKALINE PHOSPHATASE 73 U/L (38-133); ALT/SGPT 40 U/L (7-56); AST/SGOT 29 U/L (15-59); BILIRUBIN,TOTAL 1.1 mg/dL (0.2-1.3); BLOOD UREA NITROGEN 22 mg/dL (7-21); CALCIUM 8.6 mg/dL (8.4-10.5); CARBON DIOXIDE 21 mmol/L (21-33); CHLORIDE 105 mmol/L (98-107); GFR AFRICAN-AMERICAN > 60; GLUCOSE,RANDOM 61 mg/dL (70-110); POTASSIUM 4.1 mmol/L (3.6-5.0); SODIUM 138 mmol/L (132-148); TOTAL PROTEIN 6.6 g/dL (5.8-8.3)
--- NOTE | 2017-04-03 09:06 | US ---
PROCEDURE: Bilateral carotid artery duplex ultrasound HISTORY: Carotid stenosis syncope. PHYSICIAN(S): Freddie Roger MD. TECHNIQUE: Duplex sonography and color-flow Doppler were used to evaluate the carotid bifurcations and limited segments of the vertebral arteries bilaterally. FINDINGS: There is mild smooth hypoechoic plaque noted at the carotid bifurcations bilaterally. The peak systolic velocity in the proximal right internal carotid artery is 85 cm/sec. This corresponds to a 20 to 39% proximal right ICA stenosis. Normal systolic velocities are noted in the proximal right external carotid artery. There is antegrade flow in the right vertebral artery. The peak systolic velocity in the proximal left internal carotid artery is 79 cm/sec. This corresponds to a 20 to 39% proximal left ICA stenosis. Normal systolic velocities are noted in the proximal left external carotid artery. There is antegrade flow in the left vertebral artery. IMPRESSION: 1. Bilateral 20-39% proximal ICA stenoses. 2. Antegrade flow in both vertebral arteries.
--- NOTE | 2017-04-03 10:52 | MRI ---
PROCEDURE: MRI BRAIN WITHOUT CONTRAST HISTORY: r/o mass COMPARISON: None. TECHNIQUE: Multiplanar, multisequence MR images of the brain were obtained without intravenous contrast enhancement. FINDINGS: HEMORRHAGE: None DWI: No evidence of an acute or early subacute infarction. BRAIN PARENCHYMA: No mass effect or edema. Minimal microvascular changes. No significant atrophy VENTRICLES: Unremarkable. No hydrocephalus. CRANIUM: Unremarkable. ORBITS: Grossly unremarkable. PARANASAL SINUSES/MASTOIDS: Clear VASCULAR SYSTEM: Skull base flow voids intact. OTHER FINDINGS: The report concurs with the preliminary [facility] report IMPRESSION: No acute findings
[2017-04-03] MEDS: POLYETHYLENE GLYCOL 3350 17 GM/Dose PACKET PO SCH ×5 (11:01→20:17)
--- NOTE | 2017-04-03 11:31 | CP.PCM.PN ---
<Bereket Kelly - Last Filed: 04/03/17 11:28> Subjective - Date & Time of Evaluation Date of Evaluation: 04/03/17 Time of Evaluation: 11:28 - Subjective Subjective: Medicine progress note - Bereket Kelly PGY 1 Patient seen and examined at bedside this morning. No acute overnight events or new complaints. Pending GI/Neuro/Cardio workup. Denies chest pain, palpitations , SOB. Objective - Vital Signs/Intake and Output Vital Signs (last 24 hours): Temp Pulse Resp BP Pulse Ox 97.9 F 60 18 143/96 H 95 04/03/17 06:00 04/03/17 06:00 04/03/17 06:00 04/03/17 06:00 04/03/17 06:00 Intake and Output: 04/03/17 04/03/17 06:59 18:59 Intake Total 0 Balance 0 - Medications Medications: Current Medications Acetaminophen (Tylenol 325mg Tab) 650 mg PO Q6H PRN PRN Reason: Pain, Mild (1-3) Last Admin: 04/03/17 08:44 Dose: 650 mg Alprazolam (Xanax) 0.5 mg PO QID PRN; Protocol PRN Reason: Anxiety Last Admin: 04/02/17 00:14 Dose: 0.5 mg Enoxaparin Sodium (Lovenox) 40 mg SC DAILY [facility] PRN Reason: Protocol Last Admin: 04/02/17 09:20 Dose: 40 mg Sodium Chloride (Sodium Chloride 0.9%) 1,000 mls @ 80 mls/hr IV .[id number] [facility] Last Admin: 04/03/17 04:39 Dose: 80 mls/hr Ketorolac Tromethamine (Toradol) 30 mg IVP Q6H PRN PRN Reason: Pain, moderate (4-7) Last Admin: 04/03/17 04:38 Dose: 30 mg Losartan Potassium (Cozaar) 50 mg PO DAILY [facility] Last Admin: 04/02/17 09:20 Dose: 50 mg Nicotine (Nicoderm Cq) 1 patch TD DAILY [facility] Last Admin: 04/02/17 09:21 Dose: 1 patch Ondansetron HCl (Zofran Inj) 4 mg IVP Q6 PRN PRN Reason: Nausea/Vomiting Pantoprazole Sodium (Protonix Ec Tab) 40 mg PO DAILY [facility] Last Admin: 04/02/17 09:19 Dose: 40 mg Polyethylene Glycol (Miralax) 17 gm PO Q3H [facility] Senna/Docusate Sodium (Senokot S 50 Mg-8.6 Mg) 1 tab PO DAILY [facility] Last Admin: 04/02/17 09:19 Dose: 1 tab - Labs Labs: 04/03/17 06:45 04/03/17 06:45 PT 10.9 Seconds (9.9-11.8) 04/01/17 16:16 INR 1.01 (0.93-1.08) 04/01/17 16:16 APTT 31.4 Seconds (23.7-30.8) H 04/01/17 16:16 - Constitutional Appears: Non-toxic, No Acute Distress - Head Exam Head Exam: ATRAUMATIC, NORMAL INSPECTION, NORMOCEPHALIC - Eye Exam Eye Exam: EOMI, PERRL - ENT Exam ENT Exam: Mucous Membranes Moist - Neck Exam Neck Exam: Normal Inspection. absent: Lymphadenopathy, Tenderness, Thyromegaly - Respiratory Exam Respiratory Exam: Clear to Ausculation Bilateral. absent: Rales, Rhonchi, Wheezes - Cardiovascular Exam Cardiovascular Exam: RRR, +S1, +S2. absent: Gallop, Rubs - GI/Abdominal Exam GI & Abdominal Exam: Soft, Tenderness. absent: Distended, Guarding, Rigid, Rebound - Neurological Exam Neurological Exam: Alert, Awake, Oriented x3 - Psychiatric Exam Psychiatric exam: Normal Affect, Normal Mood - Skin Skin Exam: Dry, Intact, Normal Color, Warm Assessment and Plan - Assessment and Plan (Free Text) Plan: 57yo male with history of chronic constipation presents c/o diffuse abdominal pain that has been ongoing now for several months 1. Abdominal pain likely secondary to chronic constipation -Longstanding history of constipation requiring daily use of laxatives -Afebrile, no leukocytosis -FOBT negative in the ED -Lipase within normal limits -CT abd/pelvis reviewed; revealed markedly thick-walled loops of small bowel; Dilated ectatic pancreatic duct measuring up to 7mm. 4mm too small to characterize hypodense lesion within the uncinate process; see full report -MRCP pending -IVF hydration and NPO -Continue miralax/sennokot -Will discuss with GI the possibility of inpatient endoscopy/colonoscopy tomorrow -GI consulted - Dr. Godoy 2. Presyncope -Patient reports recent episodes of dizziness and lightheadedness -Bradycardic in the 40's on admission thought to be secondary to excessive vagal input however workup pending -Orthostatic vital signs pending -TSH within normal limits -Echocadiogram pending -Carotid doppler reviewed; 20-39% proximal ICA stenosis; antegrade flow in both vertebral arteries -MRI brain revealed no acute findings -Cardio consulted - Dr. Aleman -Neurology consulted - Dr. Haney 3. Normocytic Anemia -Iron/Ferritin within normal limits -B12 and folate within normal limits -Will continue to trend H/H 4. Hypertension -Continue losartan 5. Anxiety -Continue xanax 6. GI/DVT ppx Protonix/Lovenox Patient seen, case discussed and reviewed with attending, Dr. Mckinney <Mike Mckinney - Last Filed: 05/03/17 08:32> Objective - Vital Signs/Intake and Output Vital Signs (last 24 hours): Temp Pulse Resp BP Pulse Ox 98.1 F 52 L 16 147/90 99 04/04/17 10:23 04/04/17 10:23 04/04/17 10:23 04/04/17 10:55 04/04/17 10:23 - Labs Labs: 04/04/17 05:00 04/04/17 05:00 PT 10.9 Seconds (9.9-11.8) 04/01/17 16:16 INR 1.01 (0.93-1.08) 04/01/17 16:16 APTT 31.4 Seconds (23.7-30.8) H 04/01/17 16:16 Attending/Attestation - Attestation I have personally seen and examined this patient.: Yes I have fully participated in the care of the patient.: Yes I have reviewed all pertinent clinical information, including history, physical exam and plan: Yes Notes (Text): 05/03/17 08:32 Medical record note made by the resident after discussion with my direction and input after the patient was personally seen and examined by me. I have reviewed the chart and agree that the record reflects my personal performance of history, physical, data review and course for the patient that I have planned.
[2017-04-03] MEDS: Docusate-Senna 50 mg-8.6 mg Tab PO SCH (11:35)
[2017-04-03] MEDS: Enoxaparin 40 mg Syringe SC SCH (11:35)
[2017-04-03] MEDS: Pantoprazole 40 mg EC Tab PO SCH (11:35)
--- NOTE | 2017-04-03 13:03 | MRI ---
PROCEDURE: Magnetic Resonance Cholangiopancreatography HISTORY: Dilated pancreatic duct COMPARISON: CT scan 04/01/2017. TECHNIQUE: Multiplanar, multisequence MR images of the abdomen were obtained, including heavily T2 weighted MRCP images of the biliary system. Rotating maximum intensity projection images of the biliary system were generated. FINDINGS: MRCP: The common bile duct is mildly dilated measuring 8 mm in diameter. No evidence of choledocholithiasis. No intrahepatic biliary ductal dilatation. LIVER: Unremarkable. GALLBLADDER: Unremarkable. SPLEEN: Unremarkable. PANCREAS: The pancreatic duct is dilated especially in the head of the pancreas where it measures 6 mm. The duct is smaller in caliber in the body and tail of the pancreas. There is no evidence of an obstructing mass. There are no stones ADRENALS: Unremarkable. KIDNEYS: Unremarkable. AORTA: No aneurysm. ASCITES: None. OTHER FINDINGS: None. IMPRESSION: Mildly dilated common duct and dilated pancreatic duct with no evidence of stone or mass.
--- NOTE | 2017-04-03 14:06 | PN ---
DATE: 04/03/2017 The patient's nausea has improved. PHYSICAL EXAMINATION: VITAL SIGNS: Blood pressure 143/96, the heart rate is in the 60s, normal sinus rhythm. NECK: Negative JVD. LUNGS: Without rales. HEART: Reveals S1, S2. EXTREMITIES: Without edema. LABORATORY DATA: Hemoglobin is 12.3. Chemistries: The BUN and creatinine are unremarkable. TSH was 1.02. Echocardiogram was done today, but still pending. IMPRESSION: 1. Sinus bradycardia which has improved after resolution of increased vagal tone from his abdominal pain. 2. Improvement of his abdominal pain. 3. Chronic obstructive pulmonary disease. 4. History of hypertension. Given these findings, the patient is hemodynamically stable. There are no cardiac contraindications to his planned endoscopy tomorrow. Freddie Aleman MD cc: [id number] TT: 04/03/2017 14:05:16 Confirmation # [id number] Dictation # [id number] tn
--- NOTE | 2017-04-03 17:23 | CARD ---
APPROVED REPORT EXAM: Two-dimensional and M-mode echocardiogram with Doppler and color Doppler. INDICATION Syncope 2D DIMENSIONS Left Atrium (2D)3.6 (1.6-4.0cm)IVSd1.4 (0.7-1.1cm) LVDd5.4 (3.9-5.9cm)PWd1.2 (0.7-1.1cm) LVDs3.1 (2.5-4.0cm)FS (%) 42.1 % LVEF (%)72.5 (>50%) M-Mode DIMENSIONS Aortic Root3.90 (2.2-3.7cm)Aortic Cusp Exc.1.80 (1.5-2.0cm) Aortic Valve AoV Peak Gbtdbjsf672.0cm/Ileana Peak GR.10mmHg Mitral Valve MV E Jpvbuaro59.7cm/sMV A Ogkvayhb18.6cm/sE/A ratio0.7 TDI E/Lateral E'0.0E/Medial E'0.0 Tricuspid Valve TR Peak [id number]/sRAP [id number] Peak Gr.8mmHg [id number] LEFT VENTRICLE The left ventricle is normal size. There is mild to moderate concentric left ventricular hypertrophy. The left ventricular function is normal. The left ventricular ejection fraction is within the normal range. Transmitral Doppler flow pattern is Grade I-abnormal relaxation pattern. RIGHT VENTRICLE The right ventricle is normal size. There is normal right ventricular wall thickness. The right ventricular systolic function is normal. ATRIA The left atrium size is normal. The right atrium size is normal. AORTIC VALVE The aortic valve is mildly thickened. MITRAL VALVE The mitral valve is mildly thickened. TRICUSPID VALVE There is no pulmonary hypertension. GREAT VESSELS The aortic root is mildly enlarged. The IVC is normal in size and collapses >50% with inspiration. PERICARDIAL EFFUSION There is a trace loculated anterior pericardial effusion. <Conclusion> The left ventricle is normal size. There is mild to moderate concentric left ventricular hypertrophy. The left ventricular function is normal. The left ventricular ejection fraction is within the normal range. Transmitral Doppler flow pattern is Grade I-abnormal relaxation pattern. The aortic root is mildly enlarged.
[2017-04-03] MEDS ORDERED: Peg-Electrolyte Oral Soln 4L (Golytely) PO STA (19:46)
[2017-04-03] MEDS ORDERED: Bisacodyl 5mg EC Tab PO ONE (20:00)
[2017-04-03] MEDS ORDERED: POLYETHYLENE GLYCOL 3350 17 GM/Dose PACKET PO PRN (21:24)
--- NOTE | 2017-04-03 22:21 | CP.PCM.PN ---
Subjective - Date & Time of Evaluation Date of Evaluation: 04/03/17 Time of Evaluation: 13:00 - Subjective Subjective: Seen and examined earlier today. Just returned from MRCP. Abdominal pain slightly better, No N/V. No reports of BM. No acute overnightt events. MRCP report reviewed. Dilated CBD/pancreatic duct.See full report. Objective - Vital Signs/Intake and Output Vital Signs (last 24 hours): Temp Pulse Resp BP Pulse Ox 97.9 F 60 18 143/96 H 95 04/03/17 06:00 04/03/17 06:00 04/03/17 06:00 04/03/17 11:35 04/03/17 06:00 Intake and Output: 04/03/17 04/03/17 06:59 18:59 Intake Total 0 Balance 0 - Medications Medications: Current Medications Acetaminophen (Tylenol 325mg Tab) 650 mg PO Q6H PRN PRN Reason: Pain, Mild (1-3) Last Admin: 04/03/17 08:44 Dose: 650 mg Alprazolam (Xanax) 0.5 mg PO QID PRN; Protocol PRN Reason: Anxiety Last Admin: 04/02/17 00:14 Dose: 0.5 mg Enoxaparin Sodium (Lovenox) 40 mg SC DAILY [facility] PRN Reason: Protocol Last Admin: 04/03/17 11:35 Dose: 40 mg Sodium Chloride (Sodium Chloride 0.9%) 1,000 mls @ 80 mls/hr IV .[id number] [facility] Last Admin: 04/03/17 04:39 Dose: 80 mls/hr Ketorolac Tromethamine (Toradol) 30 mg IVP Q6H PRN PRN Reason: Pain, moderate (4-7) Last Admin: 04/03/17 12:49 Dose: 30 mg Losartan Potassium (Cozaar) 50 mg PO DAILY [facility] Last Admin: 04/03/17 11:35 Dose: 50 mg Nicotine (Nicoderm Cq) 1 patch TD DAILY [facility] Last Admin: 04/03/17 11:35 Dose: 1 patch Ondansetron HCl (Zofran Inj) 4 mg IVP Q6 PRN PRN Reason: Nausea/Vomiting Pantoprazole Sodium (Protonix Ec Tab) 40 mg PO DAILY [facility] Last Admin: 04/03/17 11:35 Dose: 40 mg Polyethylene Glycol (Miralax) 17 gm PO Q3H [facility] Last Admin: 04/03/17 18:44 Dose: 17 gm Senna/Docusate Sodium (Senokot S 50 Mg-8.6 Mg) 1 tab PO DAILY [facility] Last Admin: 04/03/17 11:35 Dose: 1 tab - Labs Labs: 04/03/17 06:45 04/03/17 06:45 PT 10.9 Seconds (9.9-11.8) 04/01/17 16:16 INR 1.01 (0.93-1.08) 04/01/17 16:16 APTT 31.4 Seconds (23.7-30.8) H 04/01/17 16:16 - Constitutional Appears: No Acute Distress - Head Exam Head Exam: NORMAL INSPECTION - Eye Exam Eye Exam: Normal appearance. absent: Scleral icterus - ENT Exam ENT Exam: Mucous Membranes Moist - Neck Exam Neck Exam: Normal Inspection - Respiratory Exam Respiratory Exam: Clear to Ausculation Bilateral, NORMAL BREATHING PATTERN. absent: Respiratory Distress - Cardiovascular Exam Cardiovascular Exam: +S1, +S2 - GI/Abdominal Exam GI & Abdominal Exam: Soft, Normal Bowel Sounds. absent: Guarding, Tenderness, Rebound - Extremities Exam Extremities Exam: absent: Calf Tenderness, Pedal Edema - Neurological Exam Neurological Exam: Alert, Awake, Oriented x3 Assessment and Plan - Assessment and Plan (Free Text) Assessment: ASSESSMENT: Abdominal Pain Chronic Constipation H/O Ulcerative Colitis Dilated Pancreatic Duct /CBD Duct 8 mm, no CBD stone H/O Perforated appendix requiring colon resection Anemia ?Enteritis Panic Attacks PLAN: start clear liquid continue PPI DVT prophylaxsis start [place] adn Dulcolax at 10 pm Plan for egd/colon in am NPO post midnight Will need EUS to evaluate pancreatic duct dilation and CBD,can consider elective outpt. Spoke to patient. Seen and examined Dr. Godoy.
[2017-04-04] MEDS: Sodium Chloride 0.9% 1,000 ML IV SCH (05:58)
[2017-04-04] MEDS ORDERED: Simethicone 40 mg/0.6 ml Liquid (30 ml) ONE (06:59)
[2017-04-04 07:16] LABS: ADD MANUAL DIFF? NO
[2017-04-04 07:19] LABS: BASO # 0.04 K/mm3 (0.0-2.0); BASO % 0.6 % (0.0-3.0); EOS # 0.2 (0.0-0.7); EOS % 2.1 % (1.5-5.0); GRAN # 4.13 (1.4-6.5); GRAN % 59.2 % (50.0-68.0); HEMATOCRIT 34.4 % (42.0-52.0); LYMPH # 2.1 (1.2-3.4); LYMPH % 30.2 % (22.0-35.0); MEAN CELL VOLUME 86.9 fL (80.0-105.0); MEAN CORPUSCULAR HEMOGLOBIN 30.6 pg (25.0-35.0); MEAN CORPUSCULAR HGB CONC 35.2 g/dl (31.0-37.0); MEAN PLATELET VOLUME 8.9 fl (7.0-11.0); MONO # 0.6 (0.1-0.6); MONO % 7.9 % (1.0-6.0); PLATELET COUNT 270 10^3/uL (120.0-450.0); RED CELL DISTRIBUTION WIDTH 12.8 % (11.5-14.5)
[2017-04-04 07:50] LABS: ALB/GLOB RATIO 1.3 (1.1-1.8); ALKALINE PHOSPHATASE 63 U/L (38-133); ALT/SGPT 36 U/L (7-56); AST/SGOT 31 U/L (15-59); BILIRUBIN,TOTAL 0.8 mg/dL (0.2-1.3); BLOOD UREA NITROGEN 17 mg/dL (7-21); CALCIUM 8.7 mg/dL (8.4-10.5); CARBON DIOXIDE 26 mmol/L (21-33); CHLORIDE 104 mmol/L (98-107); GFR AFRICAN-AMERICAN > 60; GLUCOSE,RANDOM 88 mg/dL (70-110); MAGNESIUM 2.1 mg/dL (1.7-2.2); PHOSPHOROUS 2.7 mg/dL (2.5-4.5); POTASSIUM 4.3 mmol/L (3.6-5.0); SODIUM 139 mmol/L (132-148); TOTAL PROTEIN 7.1 g/dL (5.8-8.3)
[2017-04-04 08:36] VITALS: RESP 16; TEMP 98.1
[2017-04-04] MEDS ORDERED: Propofol 10 mg/ml Inj (20 ML) ONE ×2 (08:44→09:21)
[2017-04-04] MEDS ORDERED: Lactated Ringer's 1,000 ML IV SCH (09:51)
[2017-04-04 10:24] VITALS: PULSE 52; O2SAT 99
--- NOTE | 2017-04-04 10:33 | PN ---
DATE: 04/04/2017 The patient is for endoscopy today. I was called by the nurse to evaluate what she considered a second degree block. However, she is not able to retrieve any strips for any evidence of the heart block. PHYSICAL EXAMINATION: VITAL SIGNS: Blood pressure 147/90. The heart rate is in the 50s. Physical exam is unchanged. LABORATORIES: Include echocardiogram which shows an ejection fraction of 72%. IMPRESSION: 1. Chronic obstructive pulmonary disease. 2. Sinus bradycardia. 3. Second degree heart block supposedly witnessed by the nurse, but no strip can confirm the heart b lock. 4. History of hypertension. PLAN: Given these findings, we will continue to monitor the patient on telemetry. Freddie Aleman MD cc: [id number] TT: 04/04/2017 10:32:08 Confirmation # [id number] Dictation # [id number] alina
--- NOTE | 2017-04-04 10:37 | PN ---
DATE: 04/04/2017 CARDIOLOGY FOLLOWUP The patient is asymptomatic. PHYSICAL EXAMINATION: VITAL SIGNS: Blood pressure is 160/100. The heart rate is in the 60s. NECK: Negative JVD. LUNGS: Without rales. HEART: Reveals S1, S2. EXTREMITIES: Without edema. LABORATORY DATA: Hemoglobin is 12.1. Chemistries are unremarkable. Echocardiogram reveals good LV function. There is no pulmonary hypertension noted. IMPRESSION: 1. Sinus bradycardia without hemodynamic sequellae. 2. Abdominal pain, which the patient is undergoing GI workup. 3. Chronic obstructive pulmonary disease. 4. History of hypertension. PLAN: Given these findings, we will resume his p.o. antihypertensive medications once his GI workup is resolved. Freddie Aleman MD cc: [id number] TT: 04/04/2017 09:56:46 Confirmation # [id number] Dictation # [id number] [email or web address]
[2017-04-04] MEDS: Pantoprazole 40 mg EC Tab PO SCH (10:55)
[2017-04-04] MEDS: Enoxaparin 40 mg Syringe SC SCH (10:55)
[2017-04-04 11:00] VITALS: BP 147/90
[2017-04-04] MEDS: Docusate-Senna 50 mg-8.6 mg Tab PO SCH (12:02)
--- NOTE | 2017-04-04 12:31 | CP.PCM.DIS ---
<Bereket Kelly - Last Filed: 04/06/17 06:29> Provider - Provider Date of Admission: 04/01/17 19:41 Attending physician: Mike Mckinney MD Primary care physician: Mike Mckinney MD Consults: Cardio - Dr. Aleman Gastroenterology - Dr. Godoy Neurology - Dr. Haney Time Spent in preparation of Discharge (in minutes): 30 Hospital Course - Lab Results Lab Results: Most Recent Lab Values WBC 7.0 10^3/ul (4.5-11.0) 04/04/17 05:00 RBC 3.96 10^6/uL (3.5-6.1) 04/04/17 05:00 Hgb 12.1 gm/dL (14.0-18.0) L 04/04/17 05:00 Hct 34.4 % (42.0-52.0) L 04/04/17 05:00 MCV 86.9 fL (80.0-105.0) 04/04/17 05:00 MCH 30.6 pg (25.0-35.0) 04/04/17 05:00 MCHC 35.2 g/dl (31.0-37.0) 04/04/17 05:00 RDW 12.8 % (11.5-14.5) 04/04/17 05:00 Plt Count 270 10^3/uL (120.0-450.0) 04/04/17 05:00 MPV 8.9 fl (7.0-11.0) 04/04/17 05:00 Gran % 59.2 % (50.0-68.0) 04/04/17 05:00 Lymph % (Auto) 30.2 % (22.0-35.0) 04/04/17 05:00 [place] % (Auto) 7.9 % (1.0-6.0) H 04/04/17 05:00 Eos % (Auto) 2.1 % (1.5-5.0) 04/04/17 05:00 Baso % (Auto) 0.6 % (0.0-3.0) 04/04/17 05:00 Gran # 4.13 (1.4-6.5) 04/04/17 05:00 Lymph # 2.1 (1.2-3.4) 04/04/17 05:00 [place] # 0.6 (0.1-0.6) 04/04/17 05:00 Eos # 0.2 (0.0-0.7) 04/04/17 05:00 Baso # 0.04 K/mm3 (0.0-2.0) 04/04/17 05:00 Retic Count 0.74 % (0.5-1.5) 04/02/17 07:00 PT 10.9 Seconds (9.9-11.8) 04/01/17 16:16 INR 1.01 (0.93-1.08) 04/01/17 16:16 APTT 31.4 Seconds (23.7-30.8) H 04/01/17 16:16 pO2 39 mm/Hg (30-55) 04/01/17 16:16 VBG pH 7.31 (7.32-7.43) L 04/01/17 16:16 VBG pCO2 63.0 (40-60) H 04/01/17 16:16 VBG HCO3 31.7 mmol/l (21-28) H 04/01/17 16:16 VBG Total CO2 33.6 mmol.L (22-28) H 04/01/17 16:16 VBG O2 Sat (Calc) 78.4 % (40-65) H 04/01/17 16:16 VBG Base Excess 3.6 mmol/L (0.0-2.0) H 04/01/17 16:16 VBG Potassium 4.6 mmol/L (3.6-5.2) 04/01/17 16:16 Sodium 139.0 mmol/L (132-148) 04/01/17 16:16 Chloride 110.0 mmol/L (98-107) H 04/01/17 16:16 Glucose 79 mg/dl (75-110) 04/01/17 16:16 Lactate 0.7 mmol/L (0.7-2.1) 04/01/17 16:16 FiO2 21.0 % 04/01/17 16:16 Sodium 139 mmol/L (132-148) 04/04/17 05:00 Potassium 4.3 mmol/L (3.6-5.0) 04/04/17 05:00 Chloride 104 mmol/L (98-107) 04/04/17 05:00 Carbon Dioxide 26 mmol/L (21-33) 04/04/17 05:00 Anion Gap 13 (10-20) 04/04/17 05:00 BUN 17 mg/dL (7-21) 04/04/17 05:00 Creatinine 0.8 mg/dL (0.5-1.4) 04/04/17 05:00 Est GFR ( Amer) > 60 04/04/17 05:00 Est GFR (Non-Af Amer) > 60 04/04/17 05:00 Random Glucose 88 mg/dL (70-110) 04/04/17 05:00 Calcium 8.7 mg/dL (8.4-10.5) 04/04/17 05:00 Phosphorus 2.7 mg/dL (2.5-4.5) 04/04/17 05:00 Magnesium 2.1 mg/dL (1.7-2.2) 04/04/17 05:00 Iron 82 ug/dL (45-180) 04/02/17 07:00 TIBC 235 ug/dL (261-462) L 04/02/17 07:00 % Saturation 35 % (20-55) 04/02/17 07:00 Ferritin 145.0 ng/mL 04/02/17 07:00 Total Bilirubin 0.8 mg/dL (0.2-1.3) 04/04/17 05:00 AST 31 U/L (15-59) 04/04/17 05:00 ALT 36 U/L (7-56) 04/04/17 05:00 Alkaline Phosphatase 63 U/L (38-133) 04/04/17 05:00 Total Protein 7.1 g/dL (5.8-8.3) 04/04/17 05:00 Albumin 4.0 g/dL (3.0-4.8) 04/04/17 05:00 Globulin 3.1 gm/dL 04/04/17 05:00 Albumin/Globulin Ratio 1.3 (1.1-1.8) 04/04/17 05:00 Lipase 47 U/L (23-300) 04/01/17 16:16 Vitamin B12 653 pg/mL (239-931) 04/02/17 07:00 Folate > 20.0 ng/mL 04/02/17 07:00 TSH 3rd Generation 1.02 mIU/mL (0.46-4.68) 04/02/17 08:00 Venous Blood Potassium 4.6 mmol/L (3.6-5.2) 04/01/17 16:16 - Hospital Course Hospital Course: 57M with past medical history of chronic constipation and diarrhea who presented to the ER c/o abdominal pain for over 1 month in duration. Patient reported sudden onset of abdominal pain with no inciting factors. Pain is left sided w/radiation diffusely to abdomen, worsening over last 2 weeks from mild to severe, sharp. Pt states that he has chronic constipation, requiring 3 doses of Dulcolax to move bowels, moves bowels Q4D- BM is dark/black and hard, not sticky, "like bricks", followed by dark liquid stools. Patient was seen on day of admission by PMD with instructions to present to ED for admission. Last BM on day of admission. Pain alleviated by pain medications, aggravated by lack of BM. Admits to weakness upon sitting/standing from a lying position, has fallen back on couch when attempting to get up numerous times, flatus, lethargy , fatigue, regurgitation, night sweats, palpitations, KHAN, wheezing, cough in AM (non productive), decreased appetite, panic attacks. Denied nausea, emesis, fevers, recent illness, sore throat, rhinorrhea, changes in hearing, neck pain, chest pain, SOB, melena. The following workup/results were obtained during the patient's hospital course: 1. Abdominal pain -Afebrile, no leukocytosis -FOBT negative in the ED -Lipase within normal limits -CT abd/pelvis reviewed; revealed markedly thick-walled loops of small bowel; Dilated ectatic pancreatic duct measuring up to 7mm. 4mm too small to characterize hypodense lesion within the uncinate process; see full report -MRCP mildly dilated common duct and dilated pancreatic duct with no evidence of stone or mass -Patient underwent endoscopy/colonoscopy which revealed evidence of likely Crohn 's disease; Biopsies were taken and pathology is pending. Patient was instructed to follow up with Dr. Godoy within 1-2 weeks of discharge. He was discharged on Asacol 800mg PO qD per GI recommendations. 2. Presyncope -Patient reports recent episodes of dizziness and lightheadedness -Bradycardic in the 40's on admission thought to be secondary to excessive vagal input however workup pending -TSH within normal limits -Echocadiogram revealed LVEF ~72%; LV is normal size, mild to moderate concentric LVH -Carotid doppler reviewed; 20-39% proximal ICA stenosis; antegrade flow in both vertebral arteries -MRI brain revealed no acute pathology -Cardio consulted - Dr. Aleman -Neurology consulted - Dr. Haney 3. Normocytic Anemia -Iron/Ferritin within normal limits -B12 and folate within normal limits -Will continue to trend H/H 4. Hypertension -Continue losartan 5. Anxiety -Continue xanax 6. GI/DVT ppx Protonix/Lovenox Disposition: Patient underwent extensive workup which revealed evidence of likely Crohn's disease. Pathology is pending and patient was cleared for discharge with instructions to follow up with gastroenterology within 1-2 weeks as well as his PMD, Dr. Mckinney within 1-2 weeks. Patient was agreeable with plan. Discharge Exam - Head Exam Head Exam: NORMAL INSPECTION - Eye Exam Eye Exam: EOMI, PERRL - ENT Exam ENT Exam: Mucous Membranes Moist - Neck Exam Neck exam: Normal Inspection - Respiratory Exam Respiratory Exam: Clear to PA & Lateral. absent: Rales, Rhonchi, Wheezes - Cardiovascular Exam Cardiovascular Exam: RRR, +S1, +S2 - GI/Abdominal Exam GI & Abdominal Exam: Soft, Tenderness. absent: Distended, Firm, Guarding, Rebound, Rigid - Extremities Exam Extremities exam: normal inspection - Neurological Exam Neurological exam: Alert, Oriented x3 - Psychiatric Exam Psychiatric exam: Normal Affect, Normal Mood - Skin Skin Exam: Dry, Intact, Normal Color, Warm Discharge Plan - Discharge Medications Prescriptions: Mesalamine [Delzicol] 400 mg PO BID #30 cap.drtab. Pantoprazole [Protonix EC Tab] 40 mg PO DAILY #30 ect - Follow Up Plan Condition: FAIR Disposition: HOME/ ROUTINE Instructions: Low Fiber Diet (GEN), Acute Abdominal Pain (DC) Additional Instructions: 1. Follow up with your PMD, Dr. Mckinney within 1 week of discharge. 2. Follow up with your waiter/waitress head, Dr. Godoy within 1 week of discharge. 3. Fill any medications prescribed to you and take as directed. 4. Return to the emergency room should you feel ill or have worsening of your symptoms. Referrals: Mike Mckinney MD [Primary Care Provider] - Augie Godoy MD [Medical Doctor] - <BrigittephyllisClinton - Last Filed: 04/12/17 09:16> Provider - Provider Date of Admission: 04/01/17 19:41 Attending physician: Mike Mckniney MD Primary care physician: Mike Mckinney MD Hospital Course - Lab Results Lab Results: Most Recent Lab Values WBC 7.0 10^3/ul (4.5-11.0) 04/04/17 05:00 RBC 3.96 10^6/uL (3.5-6.1) 04/04/17 05:00 Hgb 12.1 gm/dL (14.0-18.0) L 04/04/17 05:00 Hct 34.4 % (42.0-52.0) L 04/04/17 05:00 MCV 86.9 fL (80.0-105.0) 04/04/17 05:00 MCH 30.6 pg (25.0-35.0) 04/04/17 05:00 MCHC 35.2 g/dl (31.0-37.0) 04/04/17 05:00 RDW 12.8 % (11.5-14.5) 04/04/17 05:00 Plt Count 270 10^3/uL (120.0-450.0) 04/04/17 05:00 MPV 8.9 fl (7.0-11.0) 04/04/17 05:00 Gran % 59.2 % (50.0-68.0) 04/04/17 05:00 Lymph % (Auto) 30.2 % (22.0-35.0) 04/04/17 05:00 [place] % (Auto) 7.9 % (1.0-6.0) H 04/04/17 05:00 Eos % (Auto) 2.1 % (1.5-5.0) 04/04/17 05:00 Baso % (Auto) 0.6 % (0.0-3.0) 04/04/17 05:00 Gran # 4.13 (1.4-6.5) 04/04/17 05:00 Lymph # 2.1 (1.2-3.4) 04/04/17 05:00 [place] # 0.6 (0.1-0.6) 04/04/17 05:00 Eos # 0.2 (0.0-0.7) 04/04/17 05:00 Baso # 0.04 K/mm3 (0.0-2.0) 04/04/17 05:00 Retic Count 0.74 % (0.5-1.5) 04/02/17 07:00 PT 10.9 Seconds (9.9-11.8) 04/01/17 16:16 INR 1.01 (0.93-1.08) 04/01/17 16:16 APTT 31.4 Seconds (23.7-30.8) H 04/01/17 16:16 pO2 39 mm/Hg (30-55) 04/01/17 16:16 VBG pH 7.31 (7.32-7.43) L 04/01/17 16:16 VBG pCO2 63.0 (40-60) H 04/01/17 16:16 VBG HCO3 31.7 mmol/l (21-28) H 04/01/17 16:16 VBG Total CO2 33.6 mmol.L (22-28) H 04/01/17 16:16 VBG O2 Sat (Calc) 78.4 % (40-65) H 04/01/17 16:16 VBG Base Excess 3.6 mmol/L (0.0-2.0) H 04/01/17 16:16 VBG Potassium 4.6 mmol/L (3.6-5.2) 04/01/17 16:16 Sodium 139.0 mmol/L (132-148) 04/01/17 16:16 Chloride 110.0 mmol/L (98-107) H 04/01/17 16:16 Glucose 79 mg/dl (75-110) 04/01/17 16:16 Lactate 0.7 mmol/L (0.7-2.1) 04/01/17 16:16 FiO2 21.0 % 04/01/17 16:16 Sodium 139 mmol/L (132-148) 04/04/17 05:00 Potassium 4.3 mmol/L (3.6-5.0) 04/04/17 05:00 Chloride 104 mmol/L (98-107) 04/04/17 05:00 Carbon Dioxide 26 mmol/L (21-33) 04/04/17 05:00 Anion Gap 13 (10-20) 04/04/17 05:00 BUN 17 mg/dL (7-21) 04/04/17 05:00 Creatinine 0.8 mg/dL (0.5-1.4) 04/04/17 05:00 Est GFR ( Amer) > 60 04/04/17 05:00 Est GFR (Non-Af Amer) > 60 04/04/17 05:00 Random Glucose 88 mg/dL (70-110) 04/04/17 05:00 Calcium 8.7 mg/dL (8.4-10.5) 04/04/17 05:00 Phosphorus 2.7 mg/dL (2.5-4.5) 04/04/17 05:00 Magnesium 2.1 mg/dL (1.7-2.2) 04/04/17 05:00 Iron 82 ug/dL (45-180) 04/02/17 07:00 TIBC 235 ug/dL (261-462) L 04/02/17 07:00 % Saturation 35 % (20-55) 04/02/17 07:00 Ferritin 145.0 ng/mL 04/02/17 07:00 Total Bilirubin 0.8 mg/dL (0.2-1.3) 04/04/17 05:00 AST 31 U/L (15-59) 04/04/17 05:00 ALT 36 U/L (7-56) 04/04/17 05:00 Alkaline Phosphatase 63 U/L (38-133) 04/04/17 05:00 Total Protein 7.1 g/dL (5.8-8.3) 04/04/17 05:00 Albumin 4.0 g/dL (3.0-4.8) 04/04/17 05:00 Globulin 3.1 gm/dL 04/04/17 05:00 Albumin/Globulin Ratio 1.3 (1.1-1.8) 04/04/17 05:00 Lipase 47 U/L (23-300) 04/01/17 16:16 Vitamin B12 653 pg/mL (239-931) 04/02/17 07:00 Folate > 20.0 ng/mL 04/02/17 07:00 TSH 3rd Generation 1.02 mIU/mL (0.46-4.68) 04/02/17 08:00 Venous Blood Potassium 4.6 mmol/L (3.6-5.2) 04/01/17 16:16 ANCA Screen Negative (NEGATIVE) 04/04/17 12:20 c-ANCA Titer TNP 04/04/17 12:20 Proteinase 3 (PR3) <1.0 AI (<1.0) 04/04/17 12:20 p-ANCA Titer TNP 04/04/17 12:20 Atypical p-ANCA Titer TNP 04/04/17 12:20 Myeloperoxidase Ab <1.0 AI (<1.0) 04/04/17 12:20 Hepatitis A IgM Ab Negative (NEGATIVE) 04/04/17 10:00 Hep Bs Antigen Negative (NEGATIVE) 04/04/17 10:00 Hep B Core IgM Ab Negative (NEGATIVE) 04/04/17 10:00 Hepatitis C Antibody Negative (NEGATIVE) 04/04/17 10:00 S.cerevisiae IgG Ab 9.3 U (<=20.0) 04/04/17 10:00 S.cerevisiae IgA Ab 32.7 U (<=20.0) H 04/04/17 10:00 TB Test (QFT) Nil 0.04 IU/mL 04/04/17 12:20 TB Test Mitogen - Nil 9.24 IU/mL 04/04/17 12:20 TB Test TB - Nil 0.02 IU/mL 04/04/17 12:20 TB Test (QFT) Negative (Negative) 04/04/17 12:20 Attending/Attestation - Attestation I have personally seen and examined this patient.: Yes I have fully participated in the care of the patient.: Yes I have reviewed all pertinent clinical information, including history, physical exam and plan: Yes Notes (Text): 04/12/17 09:16 Medical record note made by the resident after discussion with my direction and input after the patient was personally seen and examined by me. I have reviewed the chart and agree that the record accurately reflects by personal performance of the history, physical exam, data review, and medical decision-making, in the course for the patient. I have also personally directed the plan of care.
[2017-04-10 19:00] LABS: S.CEREVISIAE (ASCA) (IGA) 32.7 U (<=20.0); S.CEREVISIAE (ASCA) (IGG) 9.3 U (<=20.0)
== END 2017-04-04 16:00 | disposition home or self-care (01) ==
LOC: ED 15:11 → ERH 19:41 → 3RSO 23:25 → INTOOBSV 04-03 11:52 → OBSVTOIN 04-03 11:52
PROVIDERS: ADMIT Internal Medicine; ATTEND Internal Medicine
PROC: 0DBL8ZX Excision of Transverse Colon, Via Natural or Artificial Opening Endoscopic, Diagnostic (ICD-10-PCS; 2017-04-04)
PROC: 0DBN8ZX Excision of Sigmoid Colon, Via Natural or Artificial Opening Endoscopic, Diagnostic (ICD-10-PCS; 2017-04-04)
PROC: 0DBP8ZX Excision of Rectum, Via Natural or Artificial Opening Endoscopic, Diagnostic (ICD-10-PCS; 2017-04-04)
PROC: 0DBB8ZX Excision of Ileum, Via Natural or Artificial Opening Endoscopic, Diagnostic (ICD-10-PCS; 2017-04-04)
PROC: 0DBM8ZX Excision of Descending Colon, Via Natural or Artificial Opening Endoscopic, Diagnostic (ICD-10-PCS; 2017-04-04)
PROC: 0DB68ZX Excision of Stomach, Via Natural or Artificial Opening Endoscopic, Diagnostic (ICD-10-PCS; principal; 2017-04-04 08:30)
PROC: 0DBK8ZX Excision of Ascending Colon, Via Natural or Artificial Opening Endoscopic, Diagnostic (ICD-10-PCS; 2017-04-04 08:30)
DX: K59.09 Other constipation (principal); I44.1 Atrioventricular block, second degree; K51.90 Ulcerative colitis, unspecified, without complications; I10 Essential (primary) hypertension; D64.9 Anemia, unspecified; J44.9 Chronic obstructive pulmonary disease, unspecified; K86.89 Other specified diseases of pancreas; F17.210 Nicotine dependence, cigarettes, uncomplicated; F41.0 Panic disorder [episodic paroxysmal anxiety]; Z79.899 Other long term (current) drug therapy; Z90.49 Acquired absence of other specified parts of digestive tract; R40.2412 Glasgow coma scale score 13-15, at arrival to emergency department; E86.0 Dehydration; R00.1 Bradycardia, unspecified; F41.9 Anxiety disorder, unspecified; R55 Syncope and collapse; R19.5 Other fecal abnormalities; K26.9 Duodenal ulcer, unspecified as acute or chronic, without hemorrhage or perforation; K52.9 Noninfective gastroenteritis and colitis, unspecified; K29.50 Unspecified chronic gastritis without bleeding; K57.30 Diverticulosis of large intestine without perforation or abscess without bleeding; K64.9 Unspecified hemorrhoids
CPT/HCPCS: 36415; 43239; 45380; 70551; 71010; 74177; 74181; 80053; 80074; 82607; 82728; 82746; 82803; 83540; 83550; 83690; 83735; 84100; 84443; 85025; 85044; 85610; 85730; 86021; 86480; 86671; 88305; 88342; 93005; 93306; 93880; 96361; 96372; 96374; 96375; 96376; 99285; G0378; J1170; J1650; J1885; J2704; J3010; J7040; Q9967